=== PATIENT | female | born 1955 | race Caucasian/White ===

== ENCOUNTER 2020-04-12 16:11 | Emergency (ER) | payer OTHER ==
[~2020-04-12] VITALS: Ht 167.6 cm; Wt 86.2 kg
[2020-04-12 16:20] VITALS: BP 119/81
--- NOTE | 2020-04-12 16:20 | NUR ---
PT PLACED IN W/C AND SENT TO ER LOBBY TO WAIT FOR AVAILABLE BED.
[2020-04-12] MEDS ORDERED: METF1000 PO (16:35)
[2020-04-12] MEDS ORDERED: ONDA4TAB PO (16:35)
[2020-04-12] MEDS ORDERED: ESOM40EC PO (16:35)
[2020-04-12] MEDS ORDERED: TAM75 PO (16:35)
[2020-04-12] MEDS ORDERED: LEVO750T2 PO (16:35)
[2020-04-12] MEDS ORDERED: LOSA50TA57 PO (16:35)
[2020-04-12] MEDS ORDERED: AZIT250T3 PO (16:35)
[2020-04-12] MEDS ORDERED: CEPH500C16 PO (16:35)
[2020-04-12] MEDS ORDERED: VOL25 PO (16:35)
[2020-04-12] MEDS ORDERED: AMLO10TA PO (16:35)
--- NOTE | 2020-04-12 17:10 | NUR ---
PT BIBA FROM HOME, FAMILY CALLED EMS, C/O N/V X2 DAYS AND 5 EPISODES OF VOMITING TODAY; PT WAS SEEN AT [facility] 04/08/2020 FOR SIMILAR SYMPTOMS AND DX FOR NAUSEAN AND VOMITING TX WITH ZOFRAN W/O RELIEF. PT DENIES ABDOMINAL PAIN, DIARRHEA, CP, SOB, FEVER, COUGH, SICK CONTACTS AT THIS TIME. PATIENT STATES PAIN OF 0/10 AT THIS TIME; VSS; PATIENT POSITIONED FOR COMFORT; HOB ELEVATED; BEDRAILS UP X2; BED DOWN. ER MD MADE AWARE OF PT STATUS.
[2020-04-12 17:11] LABS: BASOPHILS # (AUTO) 0.1 K/uL (0.00-0.22); BASOPHILS % (AUTO) 0.9 % (0.0-2.0); EOSINOPHILS # (AUTO) 0.1 K/uL (0-0.4); EOSINOPHILS % (AUTO) 0.6 % (0.0-4.0); HEMATOCRIT 48.4 % (36-48); HEMOGLOBIN 16.4 g/dL (12.0-16.0); LYMPHOCYTES # (AUTO) 1.4 K/uL (2.5-16.5); LYMPHOCYTES % (AUTO) 11.5 % (20.5-51.1); MEAN CORPUSCULAR HEMOGLOBIN 31 pg (27-31); MEAN CORPUSCULAR HGB CONC 34 g/dL (33-37); MEAN CORPUSCULAR VOLUME 91.1 fL (80-94); MONOCYTES # (AUTO) 0.9 K/uL (0.8-1.0); MONOCYTES % (AUTO) 7.5 % (1.7-9.3); NEUTROPHILS # (AUTO) 9.6 K/uL (1.8-7.7); NEUTROPHILS % (AUTO) 79.5 % (42.2-75.2); PLATELET COUNT (AUTO) 197 K/uL (140-450); RED BLOOD CELL COUNT(AUTO) 5.31 MIL/uL (4.20-5.40); RED CELL DISTRIBUTION WIDTH 13.2 % (11.6-13.7); WHITE BLOOD COUNT (AUTO) 12.1 K/uL (4.8-10.8)
[2020-04-12] MEDS ORDERED: MECLIZINE 25 MG TAB PO ONE (17:15)
--- NOTE | 2020-04-12 17:15 | NUR ---
DR. FANG IS EVALUATING AT BEDSIDE.
[2020-04-12 17:28] LABS: ALBUMIN 3.6 g/dL (3.4-5.0); ANION GAP 17.4 (8-16); CARBON DIOXIDE 26.2 mmol/L (21-32); CREATININE 2.9 mg/dL (0.6-1.3); TOTAL BILIRUBIN 0.8 mg/dL (0.0-1.0)
[2020-04-12 17:35] LABS: POTASSIUM 2.6 mmol/L (3.5-5.1)
[2020-04-12] MEDS ORDERED: POTASSIUM CHLORIDE 10 MEQ TABER PO ONE (17:35)
[2020-04-12] MEDS ORDERED: NACL 0.9% 1,000 ML IV ONE (17:40)
[2020-04-12] MEDS ORDERED: ONDANSETRON 4 MG/2 ML VIAL IVP ONE (17:55)
--- NOTE | 2020-04-12 17:58 | NUR ---
SPOKE TO GERMAN MARIA @ [phone] TO GIVE UPDATES.
--- NOTE | 2020-04-12 18:13 | NUR ---
PER DR. FANG'S ORDER, DISCHARGE PT AFTER 1L BOLUS.
[2020-04-12 18:48] VITALS: BP 144/78
== END 2020-04-12 18:48 | disposition home or self-care (01) ==
LOC: MED 16:11
DX: R42 Dizziness and giddiness (principal); E11.9 Type 2 diabetes mellitus without complications; Z79.899 Other long term (current) drug therapy
CPT/HCPCS: 36415; 70450; 80053; 83690; 85025; 96361; 96374; 99284; J2405; J8597; J7030

== ENCOUNTER 2020-04-18 17:49 | Emergency (ER) | payer OTHER ==
[~2020-04-18] VITALS: Ht 165.1 cm; Wt 63.5 kg
[~2020-04-18 17:49] MED LIST: AMLO10TA PO; AZIT250T3 PO; CEPH500C16 PO; ESOM40EC PO; LEVO750T2 PO; LOSA50TA57 PO; METF1000 PO; ONDA4TAB PO; TAM75 PO; VOL25 PO
[2020-04-18 18:01] VITALS: BP 138/65
[2020-04-18 18:33] LABS: BASOPHILS % (AUTO) 0.6 % (0.0-2.0); EOSINOPHILS # (AUTO) 0.1 K/uL (0-0.4); EOSINOPHILS % (AUTO) 1.8 % (0.0-4.0); HEMATOCRIT 42.1 % (36-48); HEMOGLOBIN 14.3 g/dL (12.0-16.0); LYMPHOCYTES # (AUTO) 1.9 K/uL (2.5-16.5); LYMPHOCYTES % (AUTO) 24.2 % (20.5-51.1); MEAN CORPUSCULAR HEMOGLOBIN 31 pg (27-31); MEAN CORPUSCULAR HGB CONC 34 g/dL (33-37); MEAN CORPUSCULAR VOLUME 90.2 fL (80-94); MONOCYTES # (AUTO) 0.7 K/uL (0.8-1.0); MONOCYTES % (AUTO) 8.9 % (1.7-9.3); NEUTROPHILS % (AUTO) 64.5 % (42.2-75.2); PLATELET COUNT (AUTO) 183 K/uL (140-450); RED BLOOD CELL COUNT(AUTO) 4.67 MIL/uL (4.20-5.40); RED CELL DISTRIBUTION WIDTH 12.9 % (11.6-13.7); WHITE BLOOD COUNT (AUTO) 7.8 K/uL (4.8-10.8)
[2020-04-18 18:49] LABS: ALBUMIN 3.2 g/dL (3.4-5.0); ANION GAP 16.7 (8-16); CARBON DIOXIDE 24.1 mmol/L (21-32); CREATININE 1.5 mg/dL (0.6-1.3); TOTAL BILIRUBIN 0.6 mg/dL (0.0-1.0)
[2020-04-18 18:52] LABS: POTASSIUM 2.8 mmol/L (3.5-5.1)
[2020-04-18] MEDS ORDERED: MAG SULF 2000 MG/WATER PREMIX 50 ML IV ONE (18:55)
[2020-04-18] MEDS ORDERED: POTASSIUM CHLORIDE 10 MEQ TABER PO ONE (18:55)
[2020-04-18 23:01] VITALS: BP 126/80
== END 2020-04-18 23:00 | disposition home or self-care (01) ==
LOC: MED 17:49
DX: R55 Syncope and collapse (principal); E78.00 Pure hypercholesterolemia, unspecified; E11.65 Type 2 diabetes mellitus with hyperglycemia; I10 Essential (primary) hypertension; Z79.899 Other long term (current) drug therapy; Z87.442 Personal history of urinary calculi
CPT/HCPCS: 36415; 70470; 80053; 84484; 85025; 96365; 99285; J3475; Q9967; 81002; 99284

== ENCOUNTER 2020-08-21 09:47 | Emergency (ER) | payer OTHER ==
[~2020-08-21] VITALS: Ht 167.6 cm; Wt 85.3 kg
[2020-08-21 09:55] VITALS: BP 140/70
--- NOTE | 2020-08-21 09:55 | NUR ---
65 y/o female A&OX4 c/o itching behind ears, on eyelids, and numbness around the lips X 3days. Denies fever, chills, or SOB. No loss of vision. PMH: HTN, DM, arthritis, HLD, hypothyroid NKA
--- NOTE | 2020-08-21 09:55 | NUR ---
PT TAKEN TO BED 12 AND TRIAGED AT BEDSIDE.
--- NOTE | 2020-08-21 10:00 | NUR ---
Dr. James at the pt bedside for evaluation.
[2020-08-21 10:11] VITALS: BP 140/70
--- NOTE | 2020-08-21 10:11 | NUR ---
Patient discharged with v/s stable. Written and verbal after care instructions given and explained. Patient alert, oriented and verbalized understanding of instructions. Ambulatory with steady gait. All questions addressed prior to discharge. ID band removed. Patient advised to follow up with PMD. Rx of zyrtec 10mg tablet daily PRN given. Patient educated on indication of medication including possible reaction and side effects. Opportunity to ask questions provided and answered.
== END 2020-08-21 10:11 | disposition home or self-care (01) ==
LOC: MED 09:47
DX: T78.40XA Allergy, unspecified, initial encounter (principal); X58.XXXA Exposure to other specified factors, initial encounter; E11.9 Type 2 diabetes mellitus without complications; E07.9 Disorder of thyroid, unspecified; E78.5 Hyperlipidemia, unspecified; I10 Essential (primary) hypertension; Z88.0 Allergy status to penicillin; Z88.6 Allergy status to analgesic agent; Z79.899 Other long term (current) drug therapy
CPT/HCPCS: 99282

== ENCOUNTER 2021-02-13 10:48 | Emergency (ER) | payer OTHER ==
[~2021-02-13] VITALS: Ht 167.6 cm; Wt 85.3 kg
[2021-02-13 10:52] VITALS: BP 145/61
--- NOTE | 2021-02-13 10:56 | NUR ---
Pt ambulated to ER bed 12.
--- NOTE | 2021-02-13 11:04 | NUR ---
65 Y/O FEMALE C/O DIZZINESS WITH N/V X 2 DAYS. PT STATES SHE HAS BEEN SEEN BY NEUROLOGY AND DX WITH VESTIBULAR MIGRAINES NO RX TAKEN TODAY. ABDOMEN IS SOFT, ROUND, NON-TENDER TO PALPATION, BOWEL SOUNDS ACTIVE X4, LAST BM 02/12/21. PT ACTIVELY VOMITING AFTER ASSESSMENT, PROVIDED A NEW EMESIS BAG. PMH: DM, HTN, HYPOTHYROID, ARTHRITIS, MIGRAINE ALLERGIES: PCN, HYDROCODONE
--- NOTE | 2021-02-13 11:09 | NUR ---
Resident sravanthi Pena at pt bedside for further evaluation.
[2021-02-13] MEDS ORDERED: ONDANSETRON 4 MG ODT PO ONE (12:05)
[2021-02-13] MEDS ORDERED: MECLIZINE 25 MG TAB PO ONE (12:05)
[2021-02-13] MEDS ORDERED: MECL-303 PO (12:11)
[2021-02-13] MEDS ORDERED: ONDA-24 SL (12:11)
--- NOTE | 2021-02-13 12:29 | NUR ---
Patient discharged with v/s stable. Written and verbal after care instructions given and explained. Patient alert, oriented and verbalized understanding of instructions. Ambulatory with steady gait. All questions addressed prior to discharge. ID band removed. Patient advised to follow up with PMD. Rx of MECLZINE 25MG PO TID PRN VOMITING, AND ZOFRAN 4MG ODT Q8H PRN N/V given. Patient educated on indication of medication including possible reaction and side effects. Opportunity to ask questions provided and answered.
== END 2021-02-13 12:29 | disposition home or self-care (01) ==
LOC: MED 10:48
DX: R42 Dizziness and giddiness (principal); R11.2 Nausea with vomiting, unspecified; E03.9 Hypothyroidism, unspecified; Z88.0 Allergy status to penicillin; Z88.5 Allergy status to narcotic agent; Z79.899 Other long term (current) drug therapy
CPT/HCPCS: 99283; J8597; Q0162

== ENCOUNTER 2022-04-10 17:27 | Emergency (ER) | payer OTHER ==
[~2022-04-10] VITALS: Ht 167.6 cm; Wt 86.6 kg
[~2022-04-10 17:27] MED LIST changes: +MECL-303 PO; +METF-1274 PO; -METF1000 PO; +ONDA-188 SL
[2022-04-10 17:40] VITALS: BP 137/67
[2022-04-10] MEDS ORDERED: KETOROLAC 60 MG/2 ML VIAL IM ONE (18:00)
--- NOTE | 2022-04-10 18:15 | NUR ---
66 Y/O FEMALE C/O OF CONSTANT SCIATICA PAIN IN RIGHT LEG AN LOWER BACK X 3 DAYS. PAIN 8/10. DENIES INJURY. AMBULATORY. PMH: NEUROPATHY (LOWER LEGS), FIBROMYALGIA , HTN, DM, HYPOTHYROID MEDS: AMLODIPINE, LOSARTAN, LEVOTHYROXINE, INSULIN
--- NOTE | 2022-04-10 18:55 | NUR ---
Patient appears to be resting comfortably in bed. Vital Signs within normal limits. Respirations even and unlabored.
[2022-04-10] MEDS ORDERED: [UNRECOGNIZED DRUG - CODE] PO (19:00)
[2022-04-10] MEDS ORDERED: LIDO1ADH19 TP (19:00)
[2022-04-10 19:13] VITALS: BP 124/71
--- NOTE | 2022-04-10 19:14 | NUR ---
Patient discharged with v/s stable. Written and verbal after care instructions given and explained. Patient alert, oriented and verbalized understanding of instructions. Ambulatory with steady gait. All questions addressed prior to discharge. ID band removed. Patient advised to follow up with PMD. Rx of ASPERCREME, NAPROXEN given. Patient educated on indication of medication including possible reaction and side effects. Opportunity to ask questions provided and answered.
[2022-04-11] MEDS ORDERED: LIDOCAINE 5% 1 EA PATCH TP ONE (09:00)
[2022-04-11] MEDS ORDERED: NAPR-54 PO (10:47)
[2022-04-11] MEDS ORDERED: CIPR500T4 PO (10:47)
== END 2022-04-10 19:14 | disposition home or self-care (01) ==
LOC: MED 17:27
DX: M54.42 Lumbago with sciatica, left side (principal); M54.41 Lumbago with sciatica, right side; E11.9 Type 2 diabetes mellitus without complications; I10 Essential (primary) hypertension; Z86.39 Personal history of other endocrine, nutritional and metabolic disease; Z79.899 Other long term (current) drug therapy; Z79.2 Long term (current) use of antibiotics; Z88.0 Allergy status to penicillin; Z88.5 Allergy status to narcotic agent
CPT/HCPCS: 96372; 99283; J1885

== ENCOUNTER 2022-04-11 08:00 | Emergency (ER) | payer OTHER ==
[~2022-04-11] VITALS: Ht 167.6 cm; Wt 86.7 kg
[~2022-04-11 08:00] MED LIST changes: +LIDO1ADH19 TP; +[UNRECOGNIZED DRUG - CODE] PO
--- NOTE | 2022-04-11 08:05 | NUR ---
DR MARTINEZ IN TRIAGE
[2022-04-11 08:06] VITALS: BP 178/76
[2022-04-11] MEDS ORDERED: MORPHINE SULFATE 4 MG/ML SYR IM ONE (08:10)
--- NOTE | 2022-04-11 08:11 | NUR ---
PT AMBULATED TO BATHROOM WITH STEADY GAIT
--- NOTE | 2022-04-11 08:25 | NUR ---
66/F PRESENTS TO ED WITH C/O LOWER BACK PAIN RADIATING DOWN BILATERAL LEGS. PATIENT WAS SEEN HERE YESTERDAY FOR SCIATICA RELATED PAIN AND GIVEN AN RX OF PAIN MEDICATION BUT STATES PHARMACY HAS BEEN CLOSED AND IS UNABLE TO FILL HER RX. PATIENT DENIES RECENT INJURY OR TRAUMA, DENIES USING MEDS PRIOR TO ARRIVAL. PATIENT AMBULATORY UPON ARRIVAL TO ED.
[2022-04-11 08:43] LABS: APPEARANCE,URINE HAZY (CLEAR); BILIRUBIN,URINE NEGATIVE (NEGATIVE); BLOOD, URINE 1+ (NEGATIVE); COLOR,URINE YELLOW (YELLOW); LEUKOCYTE ESTERASE ,URINE 1+ (NEGATIVE); NITRITE, URINE NEGATIVE (NEGATIVE); UGLUCOSE NEGATIVE (NEGATIVE)
[2022-04-11 08:55] LABS: RBC,URINE 0-5 /HPF (0-5)
[2022-04-11 08:56] LABS: URINE AMORPHOUS URATE 1+ /HPF (None Seen); WBC,URINE 16-25 (MOD) /HPF (0-5)
--- NOTE | 2022-04-11 09:43 | NUR ---
PATIENT PROVIDED WITH BLANKET, LIGHTS DIMMED FOR COMFORT. ALL NEEDS MET AT THIS TIME.
[2022-04-11] MEDS ORDERED: NACL 0.9% 1,000 ML IV ONE (09:45)
[2022-04-11] MEDS ORDERED: KETOROLAC 30 MG/ML VIAL IVP ONE (09:45)
[2022-04-11] MEDS ORDERED: cefTRIAXone 1,000 MG VIAL ONE (10:00)
[2022-04-11 10:12] LABS: BASOPHILS # (AUTO) 0.1 K/uL (0.00-0.22); BASOPHILS % (AUTO) 0.8 % (0.0-2.0); EOSINOPHILS # (AUTO) 0.1 K/uL (0-0.4); EOSINOPHILS % (AUTO) 1.2 % (0.0-4.0); HEMATOCRIT 40.6 % (36-48); HEMOGLOBIN 13.7 g/dL (12.0-16.0); LYMPHOCYTES # (AUTO) 2.2 K/uL (2.5-16.5); LYMPHOCYTES % (AUTO) 23.7 % (20.5-51.1); MEAN CORPUSCULAR HEMOGLOBIN 30 pg (27-31); MEAN CORPUSCULAR HGB CONC 34 g/dL (33-37); MEAN CORPUSCULAR VOLUME 89.5 fL (80-94); MONOCYTES # (AUTO) 0.6 K/uL (0.8-1.0); MONOCYTES % (AUTO) 6.6 % (1.7-9.3); NEUTROPHILS # (AUTO) 6.1 K/uL (1.8-7.7); NEUTROPHILS % (AUTO) 67.7 % (42.2-75.2); PLATELET COUNT (AUTO) 172 K/uL (140-450); RED BLOOD CELL COUNT(AUTO) 4.54 MIL/uL (4.20-5.40); WHITE BLOOD COUNT (AUTO) 9.1 K/uL (4.8-10.8)
[2022-04-11 10:44] LABS: ALBUMIN 3.3 g/dL (3.4-5.0); ANION GAP 11.5 (8-16); CREATININE 0.9 mg/dL (0.6-1.3); POTASSIUM 3.5 mmol/L (3.5-5.1); TOTAL BILIRUBIN 0.4 mg/dL (0.0-1.0)
[2022-04-11] MEDS ORDERED: CIPR500T4 PO (10:47)
[2022-04-11] MEDS ORDERED: NAPR-54 PO (10:47)
--- NOTE | 2022-04-11 10:49 | NUR ---
IV removed, catheter intact and site benign. Applied folded 4x4 gauze and tape to stop bleeding.
[2022-04-11 10:50] VITALS: BP 154/66
--- NOTE | 2022-04-11 10:50 | NUR ---
Patient discharged with v/s stable. Written and verbal after care instructions ABOUT PYELONEPHRITIS given and explained. Patient alert, oriented and verbalized understanding of instructions. Ambulatory with steady gait. All questions addressed prior to discharge. ID band removed. Patient advised to follow up with PMD. Rx of CIPRO AND NAPROSYN given. Patient educated on indication of medication including possible reaction and side effects. Opportunity to ask questions provided and answered.
== END 2022-04-11 10:50 | disposition home or self-care (01) ==
LOC: MED 08:00
DX: N12 Tubulo-interstitial nephritis, not specified as acute or chronic (principal); M54.50 Low back pain, unspecified; E11.9 Type 2 diabetes mellitus without complications; I10 Essential (primary) hypertension; Z86.39 Personal history of other endocrine, nutritional and metabolic disease; Z79.1 Long term (current) use of non-steroidal anti-inflammatories (NSAID); Z79.2 Long term (current) use of antibiotics; Z79.899 Other long term (current) drug therapy; Z88.0 Allergy status to penicillin; Z88.5 Allergy status to narcotic agent
CPT/HCPCS: 36415; 80053; 81001; 85025; 87040; 87086; 96365; 96372; 96375; 99284; J0696; J1885; J2270; J7030

== ENCOUNTER 2022-07-17 12:48 | Emergency (ER) | payer OTHER ==
[~2022-07-17] VITALS: Ht 167.6 cm; Wt 84.6 kg
[~2022-07-17 12:48] MED LIST changes: +CIPR500T4 PO; +NAPR-54 PO
[2022-07-17 12:54] VITALS: BP 163/76
[2022-07-17] MEDS ORDERED: NACL 0.9% 1,000 ML IV SCH (13:45)
[2022-07-17 13:56] LABS: APPEARANCE,URINE CLEAR (CLEAR); BILIRUBIN,URINE NEGATIVE (NEGATIVE); BLOOD, URINE TRACE-I (NEGATIVE); COLOR,URINE YELLOW (YELLOW); LEUKOCYTE ESTERASE ,URINE NEGATIVE (NEGATIVE); NITRITE, URINE NEGATIVE (NEGATIVE); UGLUCOSE 3+ (NEGATIVE)
[2022-07-17 14:12] LABS: BASOPHILS # (AUTO) 0.1 K/uL (0.00-0.22); BASOPHILS % (AUTO) 0.6 % (0.0-2.0); EOSINOPHILS # (AUTO) 0.1 K/uL (0-0.4); EOSINOPHILS % (AUTO) 0.8 % (0.0-4.0); HEMATOCRIT 42.5 % (36-48); LYMPHOCYTES % (AUTO) 20.4 % (20.5-51.1); MEAN CORPUSCULAR HEMOGLOBIN 30 pg (27-31); MEAN CORPUSCULAR HGB CONC 35 g/dL (33-37); MEAN CORPUSCULAR VOLUME 86.2 fL (80-94); MONOCYTES # (AUTO) 0.7 K/uL (0.8-1.0); MONOCYTES % (AUTO) 6.9 % (1.7-9.3); NEUTROPHILS # (AUTO) 7.1 K/uL (1.8-7.7); NEUTROPHILS % (AUTO) 71.3 % (42.2-75.2); PLATELET COUNT (AUTO) 167 K/uL (140-450); RED BLOOD CELL COUNT(AUTO) 4.93 MIL/uL (4.20-5.40); RED CELL DISTRIBUTION WIDTH 13.7 % (11.6-13.7); WHITE BLOOD COUNT (AUTO) 9.9 K/uL (4.8-10.8)
[2022-07-17] MEDS ORDERED: NACL 0.9% 1,000 ML IV ONE (14:15)
[2022-07-17] MEDS ORDERED: ONDANSETRON 4 MG/2 ML VIAL IVP ONE (14:15)
[2022-07-17 14:48] LABS: ALBUMIN 3.3 g/dL (3.4-5.0); ANION GAP 14.3 (8-16); CARBON DIOXIDE 26.1 mmol/L (21-32); CREATININE 1.7 mg/dL (0.6-1.3); POTASSIUM 3.4 mmol/L (3.5-5.1); TOTAL BILIRUBIN 0.8 mg/dL (0.0-1.0)
[2022-07-17 14:49] LABS: RBC,URINE 0-5 /HPF (0-5); TRICHOMONAS,URINE None Seen /HPF (None Seen); WBC,URINE NONE SEEN /HPF (0-5); YEAST,URINE None Seen /HPF (None Seen)
[2022-07-17] MEDS ORDERED: POTASSIUM CHL 20 MEQ/NACL 0.9% 1,000 ML IV ONE (15:45)
[2022-07-17] MEDS ORDERED: INSULIN REGULAR, HUMAN 100 UNIT/ML VIAL SUBQ ONE ×2 (15:45→16:25)
[2022-07-17] MEDS ORDERED: KCL 20 MEQ/WATER INJ PREMIX 100 ML IV ONE (16:05)
[2022-07-17 16:35] LABS: LIPASE 150 U/L (73-393)
[2022-07-17] MEDS ORDERED: diphenhydrAMINE 50 MG/ML VIAL IVP ONE (16:35)
[2022-07-17] MEDS ORDERED: METOCLOPRAMIDE 10 MG/2 ML INJ VIAL IVP ONE (16:35)
[2022-07-17 17:47] LABS: ACETONE, SERUM NEGATIVE (NEGATIVE)
[2022-07-17] MEDS ORDERED: METO-485 PO (17:48)
[2022-07-17] MEDS ORDERED: SCOP0.333 TP (17:48)
[2022-07-17 18:27] LABS: ANION GAP 14.9 (8-16); CARBON DIOXIDE 24.5 mmol/L (21-32); CREATININE 1.5 mg/dL (0.6-1.3); POTASSIUM 3.4 mmol/L (3.5-5.1); TOTAL BILIRUBIN 0.7 mg/dL (0.0-1.0)
[2022-07-17 18:52] VITALS: BP 127/80
== END 2022-07-17 18:50 | disposition home or self-care (01) ==
LOC: MED 12:48
DX: E11.65 Type 2 diabetes mellitus with hyperglycemia (principal); N17.9 Acute kidney failure, unspecified; E87.6 Hypokalemia; I10 Essential (primary) hypertension; E07.9 Disorder of thyroid, unspecified; Z88.0 Allergy status to penicillin; Z88.5 Allergy status to narcotic agent; Z79.899 Other long term (current) drug therapy; Z79.84 Long term (current) use of oral hypoglycemic drugs
CPT/HCPCS: 36415; 80053; 81001; 82009; 82803; 83605; 83690; 84484; 85025; 87040; 93005; 96361; 96365; 96366; 96372; 96375; 99284; J1200; J1815; J2765; J3480; 81002

== ENCOUNTER 2022-07-22 10:32 | Emergency (ER) | payer OTHER ==
[~2022-07-22] VITALS: Ht 149.9 cm; Wt 84.4 kg
[~2022-07-22 10:32] MED LIST changes: +METO-485 PO; +SCOP0.333 TP
[2022-07-22 10:38] VITALS: BP 139/71
--- NOTE | 2022-07-22 10:42 | NUR ---
PT AMBULATED TO BED 9
--- NOTE | 2022-07-22 10:47 | NUR ---
STEFFI MADE AWARE OF PT BS
--- NOTE | 2022-07-22 10:51 | NUR ---
67/F WALKED IN C/O DIZZINESS ONSET 1 WK. PT WAS SEEN FOR SAME S/SX ON 07/17 AND WAS DC. PT IS NOW C/O NAUSEA AND BLURRED VISION. BS IN TRIAGE 214. AMBULATORY, VITALS STABLE, NO FACIAL DROOP, NO SLURRED SPEECH. ALLERGY: PCN, HYDROCODONE PMH: DM
[2022-07-22] MEDS ORDERED: MECLIZINE 25 MG TAB PO ONE (11:00)
[2022-07-22] MEDS ORDERED: NACL 0.9% 1,000 ML IV ONE (11:00)
[2022-07-22] MEDS ORDERED: ONDANSETRON 4 MG/2 ML VIAL IVP ONE (11:00)
--- NOTE | 2022-07-22 11:24 | NUR ---
IV ESTABLISHED TO RIGHT AC 20G.
[2022-07-22 11:38] LABS: BASOPHILS # (AUTO) 0.1 K/uL (0.00-0.22); BASOPHILS % (AUTO) 0.9 % (0.0-2.0); EOSINOPHILS # (AUTO) 0.1 K/uL (0-0.4); EOSINOPHILS % (AUTO) 1.7 % (0.0-4.0); HEMATOCRIT 38.6 % (36-48); HEMOGLOBIN 13.3 g/dL (12.0-16.0); LYMPHOCYTES # (AUTO) 2.2 K/uL (2.5-16.5); LYMPHOCYTES % (AUTO) 29.6 % (20.5-51.1); MEAN CORPUSCULAR HEMOGLOBIN 30 pg (27-31); MEAN CORPUSCULAR HGB CONC 35 g/dL (33-37); MEAN CORPUSCULAR VOLUME 87.6 fL (80-94); MONOCYTES # (AUTO) 0.6 K/uL (0.8-1.0); NEUTROPHILS # (AUTO) 4.4 K/uL (1.8-7.7); NEUTROPHILS % (AUTO) 59.8 % (42.2-75.2); PLATELET COUNT (AUTO) 151 K/uL (140-450); RED BLOOD CELL COUNT(AUTO) 4.41 MIL/uL (4.20-5.40); RED CELL DISTRIBUTION WIDTH 13.8 % (11.6-13.7); WHITE BLOOD COUNT (AUTO) 7.4 K/uL (4.8-10.8)
--- NOTE | 2022-07-22 11:43 | NUR ---
XR AT BEDSIDE
--- NOTE | 2022-07-22 11:52 | NUR ---
PT WENT FOR CT
[2022-07-22 12:01] LABS: PROTHROMBIN TIME 10.4 secs (10.8-13.4)
[2022-07-22 12:10] LABS: ALBUMIN 3.1 g/dL (3.4-5.0); ANION GAP 11.9 (8-16); ASPARTATE AMINOTRANSFERASE 20 U/L (15-37); CARBON DIOXIDE 26.4 mmol/L (21-32); CHLORIDE 104 mmol/L (98-107); CREATININE 1.3 mg/dL (0.6-1.3); GFR ARICAN-AMERICAN 53 mL/min (>90); GLUCOSE 198 mg/dL (74-106); POTASSIUM 3.3 mmol/L (3.5-5.1); SODIUM SERUM 139 mmol/L (136-145); TOTAL BILIRUBIN 0.7 mg/dL (0.0-1.0); UREA NITROGEN, BLOOD 25 mg/dL (7-18)
[2022-07-22 12:12] LABS: ACETONE, SERUM NEGATIVE (NEGATIVE)
[2022-07-22 13:00] VITALS: BP 132/75
[2022-07-22] MEDS ORDERED: POTASSIUM CHLORIDE 10 MEQ TABER PO ONE (13:50)
--- NOTE | 2022-07-22 13:53 | NUR ---
PT AMBULATED TO THE BATHROOM WITH STEADY GAIT
[2022-07-22 13:59] LABS: APPEARANCE,URINE SL CLOUDY (CLEAR); BILIRUBIN,URINE 1+ (NEGATIVE); BLOOD, URINE TRACE-I (NEGATIVE); COLOR,URINE YELLOW (YELLOW); LEUKOCYTE ESTERASE ,URINE 2+ (NEGATIVE); NITRITE, URINE NEGATIVE (NEGATIVE); UGLUCOSE NEGATIVE (NEGATIVE)
[2022-07-22] MEDS ORDERED: cephALEXin 500 MG CAP PO ONE (14:05)
[2022-07-22] MEDS ORDERED: METOCLOPRAMIDE 10 MG/2 ML INJ VIAL IVP ONE (14:05)
[2022-07-22] MEDS ORDERED: diphenhydrAMINE 50 MG/ML VIAL IVP ONE (14:05)
[2022-07-22] MEDS ORDERED: MECL-303 PO (14:10)
[2022-07-22] MEDS ORDERED: ALPR0.5T2 PO (14:10)
[2022-07-22] MEDS ORDERED: METO-485 PO (14:10)
[2022-07-22 14:23] LABS: OTHER CASTS, URINE None Seen /LPF (None Seen)
== END 2022-07-22 14:46 | disposition home or self-care (01) ==
LOC: MED 10:32
DX: H81.10 Benign paroxysmal vertigo, unspecified ear (principal); N39.0 Urinary tract infection, site not specified; E87.6 Hypokalemia; R42 Dizziness and giddiness; E11.9 Type 2 diabetes mellitus without complications; I10 Essential (primary) hypertension; E07.9 Disorder of thyroid, unspecified; Z88.0 Allergy status to penicillin; Z88.5 Allergy status to narcotic agent; Z79.899 Other long term (current) drug therapy; Z79.84 Long term (current) use of oral hypoglycemic drugs; Z87.442 Personal history of urinary calculi; Z98.890 Other specified postprocedural states
CPT/HCPCS: 36415; 70450; 70496; 70498; 71045; 80053; 81001; 82009; 83930; 84484; 85025; 85610; 85730; 87086; 93005; 96374; 96375; 99285; J1200; J2405; J2765; J7030; J8597; Q9967

== ENCOUNTER 2022-09-05 11:17 | Emergency (ER) | payer OTHER ==
[~2022-09-05] VITALS: Ht 167.6 cm; Wt 82.6 kg
[~2022-09-05 11:17] MED LIST changes: +ALPR0.5T2 PO
[2022-09-05 11:22] VITALS: BP 161/74
[2022-09-05] MEDS ORDERED: IBUP-1842 PO (12:29)
[2022-09-05 12:38] VITALS: BP 135/76
[2022-09-05] MEDS ORDERED: NIRM1TAB5 PO (13:37)
== END 2022-09-05 12:38 | disposition home or self-care (01) ==
LOC: MED 11:17
DX: U07.1 COVID-19 (principal); E11.9 Type 2 diabetes mellitus without complications; I10 Essential (primary) hypertension; E03.9 Hypothyroidism, unspecified; Z98.890 Other specified postprocedural states; Z79.899 Other long term (current) drug therapy; Z79.1 Long term (current) use of non-steroidal anti-inflammatories (NSAID); Z79.2 Long term (current) use of antibiotics; Z88.0 Allergy status to penicillin; Z88.5 Allergy status to narcotic agent
CPT/HCPCS: 99283